=== PATIENT | female | born 1990 | race Caucasian/White ===

== ENCOUNTER 2016-10-20 21:12 | Emergency (ER) | payer SELFPAY ==
--- NOTE | 2016-10-28 11:03 | ER ---
ADMIT: 10/20/2016 RM/LOC: ER [facility] MR#: [id number] [facility] [address] [place] [id number] RAHEEL BETTS [address] [place] [id number] Emergency Room Report SEX: F AGE: 26 : 1990 DATE: 10/20/2016 CHIEF COMPLAINT: Abdominal pain. HISTORY OF PRESENT ILLNESS: A 26-year-old female, who presents with increasing abdominal pain since 0530 hours this morning. States the pain has been quite constant, increasing throughout the day. States this initially woke her up this morning with some vague lower abdominal cramping, pain. She did take some Advil PM, was able to sleep, awoke again and feels like she did have a bowel movement, has had 6 episodes of diarrhea today. Admits to nausea, loss of appetite. States she is still eating and drinking, however, less. Last bowel movement 1730 hours was loose, no gross blood. She has not vomited. Worse with movement, did see some improvement with the Advil PM. She does admit to urinary frequency and urgency, no blood in her urine. Otherwise, healthy. Does smoke half a pack per day. x4 in the past. COURSE IN THE EMERGENCY ROOM: The patient was seen and examined, afebrile, nontoxic, in no acute distress. Physical exam is significant for some suprapubic tenderness to palpation. Otherwise, exam unremarkable. LABORATORY STUDIES: Urine shows 9 wbc's, 7 rbc's, 2+ leukocyte esterase, negative hCG from the urine. Diagnosed with urinary tract infection. Given her first dose of antibiotic in the department tonight, Bactrim DS. IMPRESSION: Acute cystitis. DISPOSITION: The patient was discharged with Bactrim DS 1 tab p.o. b.i.d. for 5 days. Follow up with the primary if she is not improving. Tylenol or Motrin for pain. Certainly to return with worsening signs or symptoms. Increase fluids as tolerated. Questions were sought and answered to the best of the ability to the patient's satisfaction. Discharged home in stable condition. DONAVAN Faye / John Helms MD / lety JOB #: [id number] CC: John Helms MD, Attending Physician Mark Carlson MD, Family Physician
== END 2016-10-20 22:25 | disposition home or self-care (01) ==
LOC: ER 21:12
DX: N30.00 Acute cystitis without hematuria (principal)